=== PATIENT | female | born 1965 | race Native Hawaiian/Other Pacific Islander ===

== ENCOUNTER 2016-09-27 09:10 | Inpatient (IN) | payer MEDICAID ==
--- NOTE | 2016-09-27 09:19 | EDM.PDOC ---
ED HPI GENERAL MEDICAL PROBLEM - General Stated Complaint: FELL 09/23/16 Time Seen by Provider: 09/27/16 09:19 Source of Information: Reports: Significant Other History Limitations: Reports: Altered Mental Status - History of Present Illness INITIAL COMMENTS - FREE TEXT/NARRATIVE: History obtained from significant other. Patient with h/o Chronic ETOH abuse and dependency, TBI with resultant Seizure disorder at baseline and some degree of baseline confusional state. Boyfriend reports that she Fell down at her apartment 3 days but this morning she became more confused. She drinks an average of 12 pack of beer daily and it appears that her last drink was 2-3 days. This morning she became very confused and was brought to the ER for further evaluation. No fever, chills or chest pain. No obvious urinary symptoms. Onset: Sudden Duration: Day(s): (started today and seem to be getting worse) Associated Symptoms: Reports: Confusion, Weakness - Related Data Allergies Allergy/AdvReac Type Severity Reaction Status Date / Time No Known Allergies Allergy Verified 09/27/16 11:08 Home Meds: Home Meds . 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: Endometriosis, Musculoskeletal History: Reports: Back Pain, Chronic Neurological History: Reports: Seizure Psychiatric History: Reports: Other (See Below) Other Psychiatric History: ALCOHOLISM - Past Surgical History Other Cardiovascular Surgeries/Procedures: ANGIOGRAM, ANGIOPLASTY Social & Family History - Family History Family Medical History: Noncontributory - Tobacco Use Smoking Status *Q: Never Smoker - Caffeine Use Caffeine Use: Reports: None - Alcohol Use Days Per Week of Alcohol Use: 7 Number of Drinks Per Day: 6 Total Drinks Per Week: 42 - Recreational Drug Use Recreational Drug Use: Yes Recreational Drug Type: Reports: Marijuana/Hashish Recreational Drug Use Frequency: Monthly ED ROS GENERAL - Review of Systems Review Of Systems: Unable To Obtain (Unable to obtain due to mental status) ED EXAM, GENERAL - Physical Exam Exam: See Below Exam Limited By: Altered Mental Status General Appearance: Other (confused) Ears: Normal External Exam Nose: Normal Inspection, Normal Mucosa Throat/Mouth: Normal Inspection, Normal Lips Head: Atraumatic, Normocephalic Neck: Normal Inspection, Supple Respiratory/Chest: No Respiratory Distress, Lungs Clear Cardiovascular: Normal Peripheral Pulses, Regular Rate, Rhythm, No Edema GI/Abdominal: Normal Bowel Sounds, Soft, Non-Tender, No Organomegaly, No Distention (Female) Exam: Deferred Rectal (Female) Exam: Deferred Back Exam: Normal Inspection, Full Range of Motion Extremities: Normal Inspection, Normal Range of Motion, Non-Tender Neurological: Alert, Oriented, CN II-XII Intact, Normal Cognition Psychiatric: Normal Affect, Normal Mood Skin Exam: Warm Lymphatic: No Adenopathy Course - Vital Signs Last Recorded V/S: Last Vital Signs Temp 36.0 C 09/27/16 09:10 Pulse 122 H 09/27/16 09:10 Resp BP Pulse Ox - Orders/Labs/Meds Orders: Active Orders 24 hr Category Date Time Status Patient Status Manage Transfer [TRANSFER] Routine ADT 09/27/16 11:39 Active Cardiac Monitoring [RC] .As Directed Care 09/27/16 11:39 Active CXR [Chest 1V Frontal] [CR] Stat Exams 09/27/16 09:25 Taken Head wo Cont [CT] Stat Exams 09/27/16 09:20 Taken Sodium Chloride 0.9% [Normal Saline] 1,000 ml Med 09/27/16 09:30 Active IV ASDIRECTED Medication Orders Sodium Chloride (Normal Saline) 1,000 mls @ 1,000 mls/hr IV ASDIRECTED BRANDEN Last Admin: 09/27/16 10:00 Dose: 1,000 mls/hr Labs: Laboratory Tests 09/27/16 09/27/16 09/27/16 Range/Units 09:30 09:30 09:30 WBC 11.3 (4.5-12.0) X10-3/uL RBC 4.28 (3.23-5.20) x10(6)uL Hgb 13.8 (11.5-15.5) g/dL Hct 41.9 (30.0-51.3) % MCV 97.8 H (80-96) fL MCH 32.1 (27.7-33.6) pg MCHC 32.9 (32.2-35.4) g/dL RDW 12.8 (11.5-15.5) % Plt Count 190 (125-369) X10(3)uL MPV 8.6 (7.4-10.4) fL Add Manual Diff Yes Neutrophils % (Manual) 74 (46-82) % Lymphocytes % (Manual) 21 (13-37) % Monocytes % (Manual) 5 (4-12) % Sodium 136 (135-145) mmol/L Potassium 2.9 L (3.5-5.3) mmol/L Chloride 98 L D (100-110) mmol/L Carbon Dioxide 25 (23-29) mmol/L BUN 12 (5-20) mg/dL Creatinine 0.6 (0.6-1.3) mg/dL Est Cr Clr Drug Dosing TNP Estimated GFR (MDRD) > 60 (>60) BUN/Creatinine Ratio 20.0 (9-20) Glucose 110 D (80-116) mg/dL Calcium 9.1 (8.6-10.2) mg/dL Magnesium (1.8-2.5) mg/dL Total Bilirubin 2.2 H (0.1-1.3) mg/dL AST 130 H (5-27) IU/L ALT 49 H D (14-26) IU/L Alkaline Phosphatase 77 (56-112) IU/L Total Protein 7.2 (6.0-8.0) g/dL Albumin 3.5 (3.5-5.2) g/dL Globulin 3.7 g/dL Albumin/Globulin Ratio 1.0 Urine Color (YELLOW) Urine Appearance (CLEAR) Urine pH (5.0-6.5) Ur Specific [place] (1.010-1.025) Urine Protein (NEGATIVE) mg/dL Urine Glucose (UA) (NEGATIVE) mg/dL Urine Ketones (NEGATIVE) mg/dL Urine Occult Blood (NEGATIVE) Urine Nitrite (NEGATIVE) Urine Bilirubin (NEGATIVE) Urine Urobilinogen (NEGATIVE) mg/dL Ur Leukocyte Esterase (NEGATIVE) Salicylates < 4.0 L (5.0-25.0) mg/dL Urine Opiates Screen (NEGATIVE) Ur Oxycodone Screen (NEGATIVE) Ur Propoxyphene Screen (NEGATIVE) Acetaminophen < 10 L (10-30) ug/mL Ur Barbituates Screen (NEGATIVE) Ur Tricyclics Screen (NEGATIVE) Ur Phencyclidine Scrn (NEGATIVE) Ur Amphetamine Screen (NEGATIVE) Urine MDMA Screen (NEGATIVE) U Benzodiazepines Scrn (NEGATIVE) U Cocaine Metab Screen (NEGATIVE) U Marijuana (THC) Screen (NEGATIVE) Ethyl Alcohol (<0.01) % 09/27/16 09/27/16 09/27/16 Range/Units 09:30 09:30 10:45 WBC (4.5-12.0) X10-3/uL RBC (3.23-5.20) x10(6)uL Hgb (11.5-15.5) g/dL Hct (30.0-51.3) % MCV (80-96) fL MCH (27.7-33.6) pg MCHC (32.2-35.4) g/dL RDW (11.5-15.5) % Plt Count (125-369) X10(3)uL MPV (7.4-10.4) fL Add Manual Diff Neutrophils % (Manual) (46-82) % Lymphocytes % (Manual) (13-37) % Monocytes % (Manual) (4-12) % Sodium (135-145) mmol/L Potassium (3.5-5.3) mmol/L Chloride (100-110) mmol/L Carbon Dioxide (23-29) mmol/L BUN (5-20) mg/dL Creatinine (0.6-1.3) mg/dL Est Cr Clr Drug Dosing Estimated GFR (MDRD) (>60) BUN/Creatinine Ratio (9-20) Glucose (80-116) mg/dL Calcium (8.6-10.2) mg/dL Magnesium 1.7 L (1.8-2.5) mg/dL Total Bilirubin (0.1-1.3) mg/dL AST (5-27) IU/L ALT (14-26) IU/L Alkaline Phosphatase (56-112) IU/L Total Protein (6.0-8.0) g/dL Albumin (3.5-5.2) g/dL Globulin g/dL Albumin/Globulin Ratio Urine Color Yellow (YELLOW) Urine Appearance Slightly cloudy (CLEAR) Urine pH 5.0 (5.0-6.5) Ur Specific [place] 1.015 (1.010-1.025) Urine Protein 30 H (NEGATIVE) mg/dL Urine Glucose (UA) Normal (NEGATIVE) mg/dL Urine Ketones 15 H (NEGATIVE) mg/dL Urine Occult Blood Negative (NEGATIVE) Urine Nitrite Negative (NEGATIVE) Urine Bilirubin Small H (NEGATIVE) Urine Urobilinogen 4 H (NEGATIVE) mg/dL Ur Leukocyte Esterase Negative (NEGATIVE) Salicylates (5.0-25.0) mg/dL Urine Opiates Screen (NEGATIVE) Ur Oxycodone Screen (NEGATIVE) Ur Propoxyphene Screen (NEGATIVE) Acetaminophen (10-30) ug/mL Ur Barbituates Screen (NEGATIVE) Ur Tricyclics Screen (NEGATIVE) Ur Phencyclidine Scrn (NEGATIVE) Ur Amphetamine Screen (NEGATIVE) Urine MDMA Screen (NEGATIVE) U Benzodiazepines Scrn (NEGATIVE) U Cocaine Metab Screen (NEGATIVE) U Marijuana (THC) Screen (NEGATIVE) Ethyl Alcohol < 0.01 (<0.01) % 09/27/16 Range/Units 10:45 WBC (4.5-12.0) X10-3/uL RBC (3.23-5.20) x10(6)uL Hgb (11.5-15.5) g/dL Hct (30.0-51.3) % MCV (80-96) fL MCH (27.7-33.6) pg MCHC (32.2-35.4) g/dL RDW (11.5-15.5) % Plt Count (125-369) X10(3)uL MPV (7.4-10.4) fL Add Manual Diff Neutrophils % (Manual) (46-82) % Lymphocytes % (Manual) (13-37) % Monocytes % (Manual) (4-12) % Sodium (135-145) mmol/L Potassium (3.5-5.3) mmol/L Chloride (100-110) mmol/L Carbon Dioxide (23-29) mmol/L BUN (5-20) mg/dL Creatinine (0.6-1.3) mg/dL Est Cr Clr Drug Dosing Estimated GFR (MDRD) (>60) BUN/Creatinine Ratio (9-20) Glucose (80-116) mg/dL Calcium (8.6-10.2) mg/dL Magnesium (1.8-2.5) mg/dL Total Bilirubin (0.1-1.3) mg/dL AST (5-27) IU/L ALT (14-26) IU/L Alkaline Phosphatase (56-112) IU/L Total Protein (6.0-8.0) g/dL Albumin (3.5-5.2) g/dL Globulin g/dL Albumin/Globulin Ratio Urine Color (YELLOW) Urine Appearance (CLEAR) Urine pH (5.0-6.5) Ur Specific [place] (1.010-1.025) Urine Protein (NEGATIVE) mg/dL Urine Glucose (UA) (NEGATIVE) mg/dL Urine Ketones (NEGATIVE) mg/dL Urine Occult Blood (NEGATIVE) Urine Nitrite (NEGATIVE) Urine Bilirubin (NEGATIVE) Urine Urobilinogen (NEGATIVE) mg/dL Ur Leukocyte Esterase (NEGATIVE) Salicylates (5.0-25.0) mg/dL Urine Opiates Screen Negative (NEGATIVE) Ur Oxycodone Screen Negative (NEGATIVE) Ur Propoxyphene Screen Negative (NEGATIVE) Acetaminophen (10-30) ug/mL Ur Barbituates Screen Negative (NEGATIVE) Ur Tricyclics Screen Negative (NEGATIVE) Ur Phencyclidine Scrn Negative (NEGATIVE) Ur Amphetamine Screen Negative (NEGATIVE) Urine MDMA Screen Negative (NEGATIVE) U Benzodiazepines Scrn Negative (NEGATIVE) U Cocaine Metab Screen Negative (NEGATIVE) U Marijuana (THC) Screen Positive H (NEGATIVE) Ethyl Alcohol (<0.01) % Meds: Medications Generic Name Dose Route Start Last Admin Trade Name Freq PRN Reason Stop Dose Admin Sodium Chloride 1,000 mls @ 1,000 mls/hr 09/27/16 09:30 09/27/16 10:00 Normal Saline IV 1,000 mls/hr ASDIRECTED BRANDEN Administration Discontinued Medications Generic Name Dose Route Start Last Admin Trade Name Freq PRN Reason Stop Dose Admin Potassium Chloride 10 meq/ 100 mls @ 100 mls/hr 09/27/16 09:51 09/27/16 10:44 Premix IV 09/27/16 10:50 100 mls/hr ONETIME ONE Administration Lorazepam 2 mg 09/27/16 09:22 09/27/16 10:07 Ativan IVPUSH 09/27/16 09:23 2 mg ONETIME ONE Administration Ondansetron HCl 4 mg 09/27/16 09:23 09/27/16 10:04 Zofran IVPUSH 09/27/16 09:24 4 mg ONETIME ONE Administration Departure - Departure Time of Disposition: 11:49 Disposition: Admitted As Inpatient 65 Condition: Fair Clinical Impression: Acute encephalopathy - Discharge Information - My Orders Last 24 Hours: My Active Orders 09/27/16 09:20 Head wo Cont [CT] Stat 09/27/16 09:25 CXR [Chest 1V Frontal] [CR] Stat 09/27/16 09:30 Sodium Chloride 0.9% [Normal Saline] 1,000 ml IV ASDIRECTED 09/27/16 11:39 Patient Status Manage Transfer [TRANSFER] Routine Cardiac Monitoring [RC] .As Directed - Assessment/Plan Last 24 Hours: My Active Orders 09/27/16 09:20 Head wo Cont [CT] Stat 09/27/16 09:25 CXR [Chest 1V Frontal] [CR] Stat 09/27/16 09:30 Sodium Chloride 0.9% [Normal Saline] 1,000 ml IV ASDIRECTED 09/27/16 11:39 Patient Status Manage Transfer [TRANSFER] Routine Cardiac Monitoring [RC] .As Directed
[2016-09-27] MEDS ORDERED: LORazepam 2 MG/ML MDV IVPUSH ONE (09:22)
[2016-09-27] MEDS ORDERED: Ondansetron 4 MG/2 ML SDV IVPUSH ONE (09:23)
[2016-09-27] MEDS ORDERED: Potassium Chloride 10 MEQ in Premix Bag 1 BAG IV ONE (09:51)
[2016-09-27 10:00] LABS: ACETAMINOPHEN < 10 ug/mL (10-30)
[2016-09-27] MEDS: Sodium Chloride 0.9% 1,000 ML IV SCH ×4 (10:00→19:29)
[2016-09-27] MEDS ORDERED: Ondansetron 4 MG Tab.DIS PO PRN (11:51)
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
[2016-09-27] MEDS ORDERED: Flumazenil 0.1 MG/ML 5 ML MDV IVPUSH SCH (15:30)
[2016-09-28] MEDS: Sodium Chloride 0.9% 1,000 ML IV SCH ×4 (03:25→19:21)
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
--- NOTE | 2016-09-28 14:04 | CR ---
INDICATION: Confusion. COMPARISON: None. FRONTAL 1-VIEW CHEST: Minimal perihilar, bibasilar subsegmental atelectasis, and/or parenchymal scarring change with volume loss. Minimal cardiomegaly, no interstitial edema. Moderate atherosclerotic vascular disease change thoracic aorta. IMPRESSION: 1. Minimal perihilar, bibasilar subsegmental atelectasis, and/or parenchymal scarring change. 2. Mild cardiomegaly which can be seen with hypertrophic versus valvular or ischemic cardiomyopathy, nonspecific etiology. MTDD
[2016-09-28] MEDS: LORazepam 2 MG/ML MDV IVPUSH PRN (22:10)
[2016-09-29] MEDS: Sodium Chloride 0.9% 1,000 ML IV SCH (03:20)
[2016-09-29] MEDS: Potassium Chloride 10 MEQ in Premix Bag 1 BAG IV SCH ×4 (09:28→23:10)
[2016-09-29] MEDS: Sodium Chloride 0.9% 250 ML IV SCH ×2 (10:28→23:30)
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
[2016-09-29] MEDS: LORazepam 2 MG/ML MDV IVPUSH PRN (15:06)
[2016-09-29] MEDS ORDERED: Sodium Chloride 0.9% 10 ML Syringe FLUSH PRN (15:11)
[2016-09-29] MEDS ORDERED: LORazepam 2 MG/ML MDV IVPUSH PRN (20:58)
[2016-09-30] MEDS: LORazepam 2 MG/ML MDV IVPUSH PRN ×3 (00:01→07:20)
[2016-09-30] MEDS: Potassium Chloride 10 MEQ in Premix Bag 1 BAG IV SCH ×2 (02:44→05:50)
[2016-09-30] MEDS: Sodium Chloride 0.9% 250 ML IV SCH (05:54)
[2016-09-30] MEDS ORDERED: Potassium Chloride 20 MEQ Tab.ER PO SCH (09:00)
[2016-09-30 11:27] VITALS: BP 130/94
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
== END 2016-09-30 10:05 | DRG 641 ==
LOC: FB.ED 09:10 → FB.ICU 11:39 → FB.MS 09-29 08:25
PROVIDERS: ADMIT Internal Medicine; ATTEND Family Medicine
DX: E51.2 Wernicke's encephalopathy (principal); I42.8 Other cardiomyopathies; T76.11XA Adult physical abuse, suspected, initial encounter; I10 Essential (primary) hypertension; E78.5 Hyperlipidemia, unspecified; F10.10 Alcohol abuse, uncomplicated; E87.6 Hypokalemia
CPT/HCPCS: 36415; 51702; 70450; 71010; 80048; 80053; 80305; 81003; 82140; 83735; 85025; 96361; 96365; 96375; 99285; A9270-GY; G0480; J2060; J2405; J3480; J3490; J7040; J7050